=== PATIENT | male | born 1960 | race Caucasian/White ===

== ENCOUNTER 2016-09-11 13:20 | Emergency (ER) | payer BC, OTHER ==
--- NOTE | 2016-09-11 13:30 | UC ---
Skin Complaint HPI - HPI Summary HPI Summary: 56 male presents with complaints of a tick bite that he noticed yesterday when outside walking in brush. Patient has had several tick bites in the past and states this was a deer tick. He believes the tick bite occurred yesterday but it could have been the day before then 09/09/16 as well. He removed the tick on his own by using a match and then tweezers to pull it off. He complains of redness surrounding the bites and a black center that he woke up with this morning. He also states he felt nauseous and had some neck and head aches while at the store just [employer]ILE SCREEN [employer]. He relates this to the tick bite. Denies vomiting, difficulty breathing, SOB and chest pain. Denies any other tick bites and rashes elsewhere. No other PMHx or complaints at this time. 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 Associated Signs & Symptoms: Positive: Nausea Related History: Insect Bite/Sting - tick bite, Possible Reaction to: Insect - tick bite - Allergy/Home Medications Allergies/Adverse Reactions: Allergies Allergy/AdvReac Type Severity Reaction Status Date / Time No Known Allergies Allergy Verified 06/28/14 12:48 Home Medications: Home Medications Ibuprofen [Advil] 600 mg 09/11/16 [History] Review of Systems Constitutional: Negative Skin: Rash - redness surrounding area of tick bite, black center Respiratory: Negative Cardiovascular: Negative Gastrointestinal: Other - nausea Motor: Negative Neurovascular: Negative Musculoskeletal: Negative Neurological: Headache Psychological: Negative All Other Systems Reviewed And Are Negative: Yes PMH/Surg Hx/FS Hx/Imm Hx Endocrine History Of: Denies: Diabetes Cardiovascular History Of: Denies: Hypertension Respiratory History Of: Denies: Asthma - Surgical History Surgical History: None - Family History Known Family History: Positive: None - Social History Alcohol Use: None Substance Use Type: None Smoking Status (MU): Never Smoked Tobacco Physical Exam Triage Information Reviewed: Yes Appearance: Well-Appearing, No Pain Distress, Well-Nourished Vital Signs Reviewed: Yes Eyes: Positive: Conjunctiva Clear ENT: Positive: Normal ENT inspection, Hearing grossly normal Neck: Positive: Supple, Nontender Respiratory: Positive: Chest non-tender, Lungs clear, Normal breath sounds, No respiratory distress, No accessory muscle use Cardiovascular: Positive: RRR, No Murmur, Pulses Normal Abdomen Description: Positive: Nontender Bowel Sounds: Positive: Present Musculoskeletal: Positive: Strength Intact, ROM Intact, No Edema Neurological: Positive: Alert Psychological Exam: Normal Skin: Positive: rashes - left lower trunk/side at area of tick bite. surrounding erythema, raised, non-tender. Black center where tick was attached. no left over tick body parts in bite. appears as though skin was burned while removing tick. no discharge or erythema migrans noted. rest of skin dry, warm and normal. Course/Dx - Course Course Of Treatment: given doxycycline and zofran while in office. educated on worsening signs and symptoms to be aware for. given lyme disease education sheet. nausea prescribed to take at home as needed. continue advil for headache. drink fluids and watch the tick bite. follow up with pcp. wear bugspray when outside. consider pest control and check pets. - Differential Diagnoses - Skin Complaint Differential Diagnoses: Cellulitis, Contact Dermatitis, Tick Born Illness, Tinea , Varicella Zoster, Viral Exanthem, Other - Diagnoses Provider Diagnoses: tick bite, tick borne illness Discharge - Discharge Plan Condition: Stable Disposition: HOME Prescriptions: Ondansetron ODT TAB* [Zofran 4 MG Odt TAB*] 4 mg PO Q6H PRN #15 tab.odt PRN Reason: Nausea Patient Education Materials: Lyme Disease (ED), Tick Bite (ED) Referrals: Johnathan Rose MD [Primary Care Provider] - Additional Instructions: The antibiotic given to you in office can make you extra sensitive to sun, wear sunscreen and take precaution when outside. Take prescribed zofran as needed for nausea. Continue Advil for headache, pain and inflammation. Apply neosporin to tick bite. Discontinue use of alcohol on area. Watch tick bite for "bullseye rash" and worsening symptoms. Lyme disease information is attached for your own education on things to look out for. Wear bugspray with DEET to prevent tick bites. Recommend checking skin after being outside. Follow up with pcp.
[2016-09-11 13:34] VITALS: BP 125/92
[2016-09-11] MEDS ORDERED: Ondansetron ODT TAB* 4 MG PO ONE (13:57)
[2016-09-11] MEDS ORDERED: DOXYcycline CAP(*) 100 MG PO ONE (13:57)
== END 2016-09-11 14:08 | disposition home or self-care (01) ==
LOC: UCEAST 13:20
DX: S20.362A Insect bite (nonvenomous) of left front wall of thorax, initial encounter (principal); W57.XXXA Bitten or stung by nonvenomous insect and other nonvenomous arthropods, initial encounter; Y93.9 Activity, unspecified; Y92.9 Unspecified place or not applicable
CPT/HCPCS: 99212; A9270-GY; G0463

== ENCOUNTER 2016-10-30 13:52 | Emergency (ER) | payer BC ==
[2016-10-30 13:57] VITALS: BP 135/93
--- NOTE | 2016-10-30 14:16 | UC ---
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-10 Numeric Location Of Pain: Is Discrete @ - right mid arm Character: Aching, Throbbing Aggravating Factor(s): Movement Alleviating Factor(s): Nothing Associated Signs And Symptoms: Positive: Negative Related History: Dominant Hand Right - Allergies/Home Medications Allergies/Adverse Reactions: Allergies Allergy/AdvReac Type Severity Reaction Status Date / Time No Known Allergies Allergy Verified 10/30/16 14:03 Home Medications: Home Medications Albuterol HFA INHALER* [Ventolin HFA Inhaler*] 1 puff INH Q4HR PRN 10/30/16 [ History Confirmed 10/30/16] Budesonide/Formote 160/4.5(NF) [Symbicort 160/4.5 (NF)] 1 puff INH DAILY [History Confirmed 10/30/16] PMH/Surg Hx/FS Hx/Imm Hx Previously Healthy: Yes - Surgical History Surgical History: None Surgery Procedure, Year, and Place: Right Hand Surgery; - Family History Known Family History: Positive: None - Social History Occupation: Employed Full-time Lives: With Family Alcohol Use: Daily Alcohol Amount: 1 drink nightly Substance Use Type: None Smoking Status (MU): Former Smoker Review of Systems Constitutional: Negative Skin: Negative Eyes: Negative ENT: Negative Respiratory: Negative Cardiovascular: Negative Gastrointestinal: Negative Genitourinary: Negative Motor: Negative, Weakness - right arm Neurovascular: Negative Musculoskeletal: Negative, Arthralgia, Myalgia - arm Neurological: Negative Psychological: Negative All Other Systems Reviewed And Are Negative: Yes Physical Exam Triage Information Reviewed: Yes Appearance: Well-Appearing, No Pain Distress, Well-Nourished Vital Signs: Initial Vital Signs Temp 97.8 F 10/30/16 13:54 Pulse 78 10/30/16 13:54 Resp 18 10/30/16 13:54 BP 135/93 10/30/16 13:54 Pulse Ox 99 10/30/16 13:54 Vital Signs Reviewed: Yes Eye Exam: Normal Eyes: Positive: Conjunctiva Clear ENT Exam: Normal ENT: Positive: Normal ENT inspection, Hearing grossly normal. Negative: Nasal drainage, Trismus, Muffled/hoarse voice Dental Exam: Normal Neck exam: Normal Neck: Positive: Supple, Nontender Respiratory Exam: Normal Respiratory: Positive: Chest non-tender, Lungs clear, Normal breath sounds, No respiratory distress, No accessory muscle use Cardiovascular Exam: Normal Cardiovascular: Positive: RRR, No Murmur, Pulses Normal, Brisk Capillary Refill Musculoskeletal Exam: Other Musculoskeletal: Positive: No Edema, Strength Limited @ - right arm, ROM Limited @ - right elbow Neurological Exam: Normal Neurological: Positive: Alert, Muscle Tone Normal Psychological Exam: Normal Diagnostics - Radiology No standard instances Xray Interpretation: No Acute Changes Radiology Interpretation Completed By: Radiologist Upper Extremity Course/Dx - Course Course Of Treatment: pain med, ice, sling, follow with ortho on Wednesday - Differential Dx/Diagnosis Differential Diagnosis/HQI/PQRI: Bursitis, Contusion, Fracture (Closed), Strain , Sprain Provider Diagnoses: Bicep tenden injury Discharge - Discharge Plan Condition: Stable Disposition: HOME Prescriptions: Hydrocodone-Acetaminophen [Hydrocodone/Acetaminophen 5-325 mg] 1 tab PO Q6H PRN #16 tab MDD 4 PRN Reason: Pain Patient Education Materials: Contusion in Adults (ED), RICE Therapy (ED), Tendon Laceration (ED) Referrals: María Palomo MD [Medical Doctor] - 2 Days Johnathan Rose MD [Primary Care Provider] -
--- NOTE | 2016-10-30 14:42 | RAD ---
INDICATION: Right elbow injury. TECHNIQUE: 4 views of the right elbow were obtained. FINDINGS: The bones are in normal alignment. No joint effusion or fracture is seen. Joint spaces appear maintained. IMPRESSION: NO EVIDENCE FOR FRACTURE.
== END 2016-10-30 15:38 | disposition home or self-care (01) ==
LOC: UCEAST 13:52
DX: S46.201A Unspecified injury of muscle, fascia and tendon of other parts of biceps, right arm, initial encounter (principal); X50.0XXA Overexertion from strenuous movement or load, initial encounter; Z87.891 Personal history of nicotine dependence
CPT/HCPCS: 99212; G0463

== ENCOUNTER 2016-11-13 08:22 | Day surgery (SDC) | payer BC ==
[~2016-11-13 08:22] MED LIST: Buffered Lidocaine 0.9% SYRIN* 5 ML/SYR SYRINGE INTRADERM ONE; Buffered Lidocaine 0.9% SYRIN* 5 ML/SYR SYRINGE ONE; Famotidine IV* 10 MG/ML 2 ML (20 mg) IV ONE; Famotidine IV* 10 MG/ML 2 ML (20 mg) ONE; Levalbuterol 0.63MG/3ML NEB INH ONE; Levalbuterol 1.25MG/0.5ML NEB ONE; Metoclopramide TAB* 10 MG ONE; Metoclopramide TAB* 10 MG PO ONE; ceFAZolin 2 GM PREMIX(*) 2 GM/50 ML BAG IVPB ONE
[2016-11-13] MEDS ORDERED: Ondansetron INJ* 2 MG/ML VIAL ONE (09:15)
[2016-11-13] MEDS ORDERED: Lidocaine 2% PF * 5 ML VIAL ONE (09:15)
[2016-11-13] MEDS ORDERED: KETAMINE HCL* 50 MG/ML 10 ML VIAL ONE (09:15)
[2016-11-13] MEDS ORDERED: Dexamethasone IV* 4 MG/ML 1 ML (4 MG) ONE (09:15)
[2016-11-13] MEDS ORDERED: fentaNYL* 50 MCG/ML 5 ML VIAL (250 MCG VIAL) ONE (09:15)
[2016-11-13] MEDS ORDERED: Midazolam* 1 MG/ML 5 ML VIAL (5 MG) ONE (09:15)
[2016-11-13] MEDS ORDERED: Propofol* 10 MG/ML 20 ML BTL IV PUSH ONE (09:15)
[2016-11-13] MEDS ORDERED: Ketorolac INJ* 30 MG/ML 1 ML VIAL ONE (09:15)
[2016-11-13] MEDS ORDERED: Bupivacaine 0.5% W/EPI SDV* 30 ML VIAL ONE (10:01)
[2016-11-13] MEDS ORDERED: fentaNYL* 50 MCG/ML 2 ML VIAL (100 MCG VIAL) ONE ×2 (11:54→13:39)
[2016-11-13] MEDS ORDERED: DiMENhydriNATE IV* 50 MG/ML VIAL IV PUSH PRN (12:35)
[2016-11-13] MEDS ORDERED: Ondansetron INJ* 2 MG/ML VIAL IV PRN (12:35)
[2016-11-13] MEDS ORDERED: HYDROmorphone* 1 MG/ML 1 ML SYR IV PRN (12:35)
[2016-11-13] MEDS ORDERED: HYDROmorphone* 1 MG/ML 1 ML SYR ONE (12:53)
[2016-11-13] MEDS ORDERED: oxyCODONE/Acetamin 5/325 MG* TAB ONE ×2 (13:39→14:33)
[2016-11-13] MEDS: oxyCODONE/Acetamin 5/325 MG* TAB PO PRN ×2 (13:41→14:38)
[2016-11-13] MEDS: fentaNYL* 50 MCG/ML 2 ML VIAL (100 MCG VIAL) IV PRN ×2 (13:43→13:56)
[2016-11-13 14:38] VITALS: BP 116/58
--- NOTE | 2016-11-15 03:14 | OP ---
OPERATIVE REPORT: DATE OF OPERATION: 11/13/16 DATE OF : 62 SURGEON: Jakub Childs MD FORM COVERER: CHARLES Main ANESTHESIOLOGIST: Garett Garrett MD ANESTHESIA: General anesthesia. PRE-OP DIAGNOSIS: Right distal biceps tear. POST-OP DIAGNOSIS: Right distal biceps tear. OPERATIVE PROCEDURE: Right open distal biceps repair. ANTIBIOSIS: 2 g Ancef IV. IV FLUIDS: 2000 cc crystalloid. TOURNIQUET TIME: 111 minutes at 250 mmHg. SPECIMEN: None. IMPLANTS: Arthrex distal biceps repair set: metal button as well as 7 x 10 mm biocomposite screw. 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 The patient was moving a hot tub. The hot tub fell to the side and while he was trying to catch it, the patient felt and heard a pop in his right elbow. He noted pain and deformity about the right elbow and was referred to my clinic. The patient described tingling of the proximal radial arm after the injury but that it had resolved by the time he presented to clinic. The patient had first gone to [facility], where he was given a sling and hydrocodone. In the office, the patient had a positive hook test with no palpable biceps tendon. He had tenderness to palpation at the tuberosity, bicipital. The patient had pain with resisted supination, but not with resisted elbow flexion. The patient had an increased flexor crease biceps muscle belly interval compared to contralateral left elbow. The provisional diagnosis of a right distal biceps tendon tear was made and the patient had a discussion with me about nonoperative and operative treatment of this injury. We discussed nonoperative management leading to a 20% decrease in the elbow flexion and a 40% decrease in forearm supination strength. 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 We discussed the risks of surgery and possible complications. I told him that while studies describe a 30% risk of lateral antebrachial cutaneous nerve palsy postoperatively, that some studies show a higher incidence , some of my colleagues tell all their patients to anticipate problems with this nerve postoperatively. In my patients, some have had some tingling postoperatively in that distribution, but it has resolved. The more serious possible complications involve injury to the posterior interosseous nerve near the location of the button and an injury to the brachial artery or median nerve just ulnar to the antecubital region of the elbow. MRI confirmed a distal biceps tendon rupture with retraction. The patient's fiance is an equine orthopedic surgeon. We spoke by phone. She had reviewed the patient's MRI and we discussed her MRI finding of a little bit of lucency about the ECRB origin of the lateral epicondyle. I explained the significance of that. We also discussed the surgery itself, what fixation I use , Arthrex, both a button and a screw as well as possible complications. She was very well informed and we even discussed pushing the tendon ulnar with the screw. The patient opted for surgical management. DESCRIPTION OF PROCEDURE: Preoperative written consent. Operative extremity was marked in preoperative holding. The patient was taken back to the operating room and placed supine on operating room table. General anesthesia was established. A hand table was applied and the bed was rotated 90 degrees. Nonsterile tourniquet was placed high on the right upper arm. The right upper extremity was prepped and draped. Surgical time-out was performed. The Esmarch was applied and the tourniquet was elevated to 250 mmHg. I made my standard skin incision. I palpated for the crease between the brachioradialis and pronator teres. That is approximately the mid point of the forearm, radial to ulnar. I then marked a point 2 cm distal to the elbow flexion crease and I leatha a line from there 4 cm long. I made that 4 cm skin incision with a 15 blade. I then used a different 15 blade to dissect more deeply in the subcutaneous tissue. I then used a dissection scissors to dissect more deeply. At first, no subcutaneous veins were encountered. I got more deeply through the subcutaneous tissue to the interval between the brachioradialis and the pronator teres. Here, the subcutaneous veins came into view both more radial, ulnar, and proximal and connected with deeper brachial vein as well, which I do not always see with this approach. I continued with dissection scissors to clearly open up the space between the brachioradialis and pronator teres such that I could touch and feel the bicipital tuberosity of the proximal radius. I then directed my attention more proximally. I dissected around the subcutaneous veins, which I respected completely. I did not have to tie off or coagulate any small branches. I palpated up into the upper arm and at first encountered the biceps tendon. I extended my incision just over 1 cm at the proximal end of the incision to improve my visualization. This improved visualization proximally. I finally encountered the biceps tendon in the ulnar most extent of my wound, much more distal than I was anticipating it. This is because there was some scar tissue, still connecting the biceps tendon to its insertion point on the bicipital tuberosity. The ruptured end of the tendon was distal to the elbow of flexion crease likely because it had been so tethered. I therefore next went distal to expose the bicipital tuberosity. With [facility] Tolu retractors retracting the brachioradialis and pronator teres, I encountered the leash of Jose David running transversely, overlying the biceps tuberosity. There were 2 leashes of vessels, which I differentiated more the more longitudinally running radial and ulnar vessels. I placed sutures ties around each leash with Vicryl 3.0 suture, two on inflow side and 1 on the backflow side. I then severed these vessels with scissors. One suture was tied with a permanent suture as I awaited more Vicryl. Of note, later in the case, one vessel backflowed a bit and I used bipolar to cauterize it. The biceps tuberosity was next well visualized. I applied 2 Hohmanns on either side of the proximal radius only after I had hypersupinated the forearm.I released some scar tissue and perhaps 2% or 5% of biceps tendon which may have still been diseased, but intact along the foot print. I then moved more proximally and retrieved the biceps tendon from the wound. I used a FiberLoop stitch out of the distal biceps repair kit and placed proximally 5 stitches in the distal biceps tendon. I did so after debriding the diseased tissue from the distal end of the biceps tendon of which there was much. Once the tendon had been freshened up, I then placed the 5 stitches using the FiberLoop suture. I loaded the fiber wire up the FiberLoop suture onto the unicortical button. I next went distal again and exposed the bicipital tuberosity. I cleared it off nicely using a curette. Irrigation. I had an excellent view. I was fortunate enough to have a second business support assistant, a PA student, who was able to hypersupinate the forearm as my primary business support assistant held Hohmann retractors. I next placed a pin, 3.2 mm. I pulled the mini C-arm in to confirm the location of the pin proximal to distal and radial to ulnar. I liked its position. I therefore next reamed over that pin with an 8 mm reamer. This was unicortical. At this point, I did a significant lavage with irrigation to avoid heterotopic ossification. I loaded the button onto the button residential door installer. I placed it through the tunnel in the proximal radius and flipped it. I then tightened the sutures, pulling the biceps tendon down into the tunnel. I next brought the mini C-arm in and confirmed the location of the button directly on the bone of the proximal radius. I liked the button location and I liked the tunnel location. I next took a free needle and passed one of the two ends of suture through the biceps tendon. I then tied a knot. I next took the 7 x 10 mm Biocomposite screw and passed it over one of those 2 sutures. I placed that screw in the radial side of that tunnel that had been drilled. This effectively pushed the tendon ulnar. I then placed another knot in the suture and cut the suture ends. Irrigation. Mini C-arm was brought in for final film showing excellent reduction of button against the proximal radius. Closure of the subcutaneous tissue was performed with buried simple stitches using Vicryl 3-0 suture. Closure of the skin was performed with a running stitch using nylon 4-0 suture. Xeroform, 4x4s, sterile Webril. A posterior elbow splint followed by a sugar tong splint were placed. Tourniquet was dropped. No local anesthetic was used. DISPOSITION: The patient was brought to the recovery room. The patient was discharged to home when medically stable. Percocet for pain control, Keflex for infection prophylaxis. The patient had a neurovascular exam performed by me in PACU. He had intact motor function, AIN, PIN, ulnar nerve. Sensation was grossly intact, but difficult to be entirely sure of given the presence of the splint and the patient's grogginess. Indocin was not provided in the PACU, but the oversight was noted on POD1 and a prescription was called in for Indocin 25mg po tid x 3 weeks for heterotopic ossification prevention. The patients Aspirin, prescribed in the PACU was stopped. The patient will follow up in clinic 7 to 10 days postoperatively and will be transitioned from his splint to an elbow brace. [id number]/CPS #: [id number] MTDD
--- NOTE | 2016-11-17 10:47 | RAD ---
INDICATION: Distal biceps tendon repair. COMPARISON: November 04, 2016 MRI. TECHNIQUE: 1 minute 25 seconds fluoroscopy. FINDINGS: Spot images document placement of a surgical anchor at level of the radial tuberosity/biceps tendon insertion. IMPRESSION: Procedural fluoroscopy. CPT II Codes: 6045F
== END 2016-11-13 14:45 | disposition home or self-care (01) ==
LOC: OR 08:22
PROVIDERS: ATTEND Orthopaedic Surgery
DX: S46.211A Strain of muscle, fascia and tendon of other parts of biceps, right arm, initial encounter (principal); X50.9XXA Other and unspecified overexertion or strenuous movements or postures, initial encounter; J45.909 Unspecified asthma, uncomplicated
CPT/HCPCS: 76000; A9270-GY; C1713; J0690; J1100; J1170; J1885; J2250; J2405; J2704; J3010

== ENCOUNTER 2017-08-24 08:52 | Emergency (ER) | payer BC, OTHER ==
[2017-08-24 09:06] VITALS: BP 145/95
[2017-08-24] MEDS ORDERED: Ibuprofen TAB* 600 MG PO ONE (10:00)
--- NOTE | 2017-08-24 10:25 | UC ---
Skin Complaint HPI - HPI Summary HPI Summary: Pt presents with laceration to left web space between 1st and 2nd digit sustained around 0100 this morning. He was slicing an onion and the knife slipped. He applied pressure and was able to stop the bleeding. Last tetanus was 2 months ago. He is right hand dominant. - History of Current Complaint Chief Complaint: UCLaceration Time Seen by Provider: 08/24/17 10:03 Stated Complaint: HAND LAC Hx Obtained From: Patient Onset/Duration: Sudden Onset Skin Exposure Onset/Duration: Hours Ago Onset Severity: Moderate Current Severity: Moderate Pain Intensity: 4 Pain Scale Used: 0-10 Numeric - Allergy/Home Medications Allergies/Adverse Reactions: Allergies Allergy/AdvReac Type Severity Reaction Status Date / Time No Known Allergies Allergy Verified 08/24/17 08:54 Home Medications: Home Medications Advair Diskus 250-50* 08/24/17 [History] Amlodipine Besylate [Norvasc 10 mg tab] 10 mg PO DAILY 08/24/17 [History Confirmed 08/24/17] Review of Systems Constitutional: Negative Skin: Other - Laceration left hand Respiratory: Negative Cardiovascular: Negative Neurovascular: Negative Musculoskeletal: Negative Neurological: Negative Psychological: Negative All Other Systems Reviewed And Are Negative: Yes PMH/Surg Hx/FS Hx/Imm Hx Previously Healthy: Yes Cardiovascular History: Hypertension Respiratory History: Asthma - Surgical History Surgical History: Yes Surgery Procedure, Year, and Place: right hand surgery d/t staph infection - in isolation for 2 days, 2006 [facility]. inguinal hernia repair - 2008 [facility] - Family History Known Family History: Positive: None - Social History Occupation: Employed Full-time Lives: With Family Alcohol Use: Daily Alcohol Amount: 1 beer or wine daily Substance Use Type: None Smoking Status (MU): Never Smoked Tobacco - Immunization History Most Recent Tetanus Shot: 1 yr Physical Exam Triage Information Reviewed: Yes Appearance: Well-Appearing, No Pain Distress, Well-Nourished Vital Signs: Initial Vital Signs Temp 98.5 F 08/24/17 09:03 Pulse 77 08/24/17 09:03 Resp 16 08/24/17 09:03 BP 145/95 08/24/17 09:03 Pulse Ox 99 08/24/17 09:03 Neck: Positive: Supple, No Lymphadenopathy Respiratory: Positive: Lungs clear, Normal breath sounds, No respiratory distress, No accessory muscle use Cardiovascular: Positive: RRR, No Murmur, Pulses Normal Musculoskeletal: Positive: Strength Intact - Left hand and all fingers, ROM Intact - Left hand and all fingers, No Edema - Left hand and all fingers Neurological: Positive: Alert Psychological: Positive: Age Appropriate Behavior Skin: Positive: Other - Superficial laceration to left web space between thumb and index finger. No subcu fat exposed. 1.0cm in length. Laceration Repair - Laceration Repair 1 Description: Linear Laceration Size After Repair: Length (cm) - 1.0 Modified For Repair: No Cleansing Completed Via Routine Prep: Yes Closure Material: Skin Adhesive Course/Dx - Course Course Of Treatment: Lac was cleaned with NS. Adhesive applied and dressed with telfa. F/u if notice signs of infection. - Diagnoses Provider Diagnoses: 1.0cm superficial laceration to left hand Discharge - Sign-Out/Discharge Documenting (check all that apply): Discharge - Discharge Plan Condition: Stable Disposition: HOME Patient Education Materials: Skin Adhesive Care (ED) Referrals: Herbert Garibay NP [Primary Care Provider] - Additional Instructions: If you develop a fever, shortness of breath, chest pain, new or worsening symptoms - please call your PCP or go to the ED. Your blood pressure was high at todays visit. Please see your primary provider within 4 weeks for recheck and re-evaluation. - Billing Disposition and Condition Condition: STABLE Disposition: HOME
== END 2017-08-24 10:35 | disposition home or self-care (01) ==
LOC: UCEAST 08:52
DX: S61.412A Laceration without foreign body of left hand, initial encounter (principal); W26.0XXA Contact with knife, initial encounter; Y93.G1 Activity, food preparation and clean up; Y92.9 Unspecified place or not applicable; I10 Essential (primary) hypertension; J45.909 Unspecified asthma, uncomplicated
CPT/HCPCS: 12001; 99211; 99212; A9270-GY; G0463